=== PATIENT | male | born 1970 | race Caucasian/White ===

== ENCOUNTER 2020-08-11 15:57 | Inpatient (IN) | payer OTHER ==
[2020-08-11] MEDS ORDERED: MAG HYDROX/AL HYDROX/SIMETH 30 ML UNIT-DOSE CUP PO PRN (18:37)
[2020-08-11] MEDS ORDERED: MAGNESIUM HYDROX 2400MG/30ML ORAL SUSPENSION 30 ML CUP PO PRN (18:37)
[2020-08-11] MEDS ORDERED: METHOCARBAMOL 500 MG TABLET PO PRN (18:37)
[2020-08-11] MEDS ORDERED: MENTHOL/PHENOL 1 EACH UD MM PRN (18:37)
[2020-08-11] MEDS ORDERED: ONDANSETRON *ODT* 4 MG TABLET SL PRN (18:37)
[2020-08-11] MEDS ORDERED: MAGNESIUM CITRATE 300 ML BOTTLE PO PRN (18:37)
[2020-08-11] MEDS ORDERED: NICOTINE POLACRILEX 2 MG GUM BUC PRN (18:37)
[2020-08-11] MEDS ORDERED: ACETAMINOPHEN 325 MG TABLET (FP) PO PRN ×2 (18:37)
[2020-08-11] MEDS ORDERED: BISMUTH SUBSALICYLATE 524 MG/30 ML PO PRN (18:37)
[2020-08-11] MEDS ORDERED: diazePAM 5 MG TABLET PO PRN (18:38)
[2020-08-11 19:35] VITALS: BMI 28.7
[2020-08-11] MEDS ORDERED: diazePAM 5 MG TABLET PO ONE (19:45)
[2020-08-11] MEDS: THIAMINE HCL 100 MG TABLET (FP) PO SCH (21:07)
[2020-08-11] MEDS: MELATONIN 5 MG TABLETS PO SCH (21:13)
[2020-08-11] MEDS: diazePAM 5 MG TABLET PO SCH (23:07)
[2020-08-12] MEDS: diazePAM 5 MG TABLET PO SCH ×4 (05:58→22:04)
[2020-08-12] MEDS: PRENATAL VITAMINS W/ FOLIC ACID TABLET (FP) PO SCH (10:34)
[2020-08-12 11:39] LABS: HEMATOCRIT 29.7 % (35.4-49); HEMOGLOBIN 9.8 GM/dL (11.7-16.9); MCH 28.4 pg (25.7-33.7); MCHC 33.1 g/dl (32.0-35.9); MEAN CELL VOLUME 85.8 fl (80-96); MEAN PLT VOLUME 8.6 fl (7.5-11.1); PLATELET COUNT 79 K/MM3 (134-434); RBC 3.46 M/mm3 (4.00-5.60); RDW 18.1 % (11.9-15.9); WHITE BLOOD COUNT 3.4 K/mm3 (4.0-10.0)
[2020-08-12 11:44] LABS: CALCIUM 8.4 mg/dL (8.5-10.1)
[2020-08-12 11:45] LABS: BLOOD UREA NITROGEN 15.4 mg/dL (7-18)
[2020-08-12 11:48] LABS: CREATININE 0.7 mg/dL (0.55-1.3)
[2020-08-12 11:49] LABS: TOT PROT 6.2 g/dl (6.4-8.2)
[2020-08-12] MEDS: THIAMINE HCL 100 MG TABLET (FP) PO SCH (22:04)
[2020-08-12] MEDS: MELATONIN 5 MG TABLETS PO SCH (22:04)
[2020-08-13] MEDS ORDERED: diazePAM 5 MG TABLET PO ONE (06:00)
[2020-08-13] MEDS: PRENATAL VITAMINS W/ FOLIC ACID TABLET (FP) PO SCH (10:17)
[2020-08-13] MEDS: IBUPROFEN 400 MG TABLET (FP) PO PRN ×2 (10:20→17:49)
[2020-08-13 11:04] LABS: BASO % 0.6 % (0-2.0); HEMATOCRIT 31.7 % (35.4-49); HEMOGLOBIN 10.5 GM/dL (11.7-16.9); LYMPH % 39.2 % (8-40); MCH 28.3 pg (25.7-33.7); MCHC 33.1 g/dl (32.0-35.9); MEAN CELL VOLUME 85.6 fl (80-96); MEAN PLT VOLUME 8.6 fl (7.5-11.1); MONO % 11.1 % (3.8-10.2); NEUT % 45.1 % (42.8-82.8); PLATELET COUNT 80 K/MM3 (134-434); RBC 3.71 M/mm3 (4.00-5.60); RDW 17.6 % (11.9-15.9); WHITE BLOOD COUNT 3.1 K/mm3 (4.0-10.0)
[2020-08-13] MEDS: MELATONIN 5 MG TABLETS PO SCH (22:19)
[2020-08-13] MEDS: THIAMINE HCL 100 MG TABLET (FP) PO SCH (22:19)
[2020-08-14] MEDS ORDERED: diazePAM 5 MG TABLET PO ONE (05:00)
[2020-08-14 09:31] VITALS: BP 116/79; PULSE 78; TEMP 98.4
== END 2020-08-14 09:47 | disposition home or self-care (01) | DRG 775 ==
LOC: YASAS 15:57 → Y6N 19:22
PROVIDERS: ADMIT Allergy & Immunology; ATTEND Allergy & Immunology
PROC: HZ2ZZZZ Detoxification Services for Substance Abuse Treatment (ICD-10-PCS; principal; 2020-08-11)
DX: F10.230 Alcohol dependence with withdrawal, uncomplicated (principal); F10.220 Alcohol dependence with intoxication, uncomplicated; F32.9 Major depressive disorder, single episode, unspecified; F41.8 Other specified anxiety disorders; D64.9 Anemia, unspecified; M25.561 Pain in right knee; Z99.89 Dependence on other enabling machines and devices; Z88.0 Allergy status to penicillin
CPT/HCPCS: 36415; 80053; 82728; 83550; 85025; 85027; 86780; C9803; U0003; U0005